=== PATIENT | female | born 1970 | race Caucasian/White ===

== ENCOUNTER → 2019-03-02 | Outpatient (CLI) | payer BC ==
[~2019-03-02] MED LIST: REGADENOSON 0.4 MG/5 ML DISP.SYRIN. IV ONE
--- NOTE | 2019-03-02 14:26 | PCVCIMAG ---
APPROVED REPORT Study performed: 03/02/2019 09:13:42 Indication: Pre-Operative CV evaluation, Chest pain w Nausea Patient Location: Out-Patient Stress Nurse: Yennifer Hudson, RN, Anna Sanchez RN NE Tech:EVAN FoxMT Ht: 5 ft 1 in Wt: 202 lbs BSA: 1.90 m2 HR: 93 bpm BP: 111/59 mmHg BMI: 38.16 Rhythm: Normal Sinus Rhythm Medical History Medical History: HTN, Obesity Medications: No cardiac meds Allergies: No known drug allergies Cardiac Risk Factors: Age, FHX of CAD Pretest Chest Pain Characteristics: No chest pain Exercise History: Physically active Physical Disabilities: Torn meniscus Resting Data Rest SPECT myocardial perfusion imaging was performed in supine position 45 minutes following the intravenous injection of 13.8 mCi of Tc-99m Sestamibi. Time of rest injection: 829 Date: 03/02/2019 Administration Route: IV Administration Site: Left AC Pharmacologic Stress Pharmacologic stress test was performed by injecting Regadenoson 0.4 mg IV push over 10-15 seconds immediately followed by the intravenous injection of 42.1 mCi of Tc-99m Sestamibi. Time of stress injection: 944 Date: 03/02/2019 Administration Route: IV Administration Site: Left AC Gated Stress SPECT was performed 45 minutes after stress injection. The images were gated to evaluate regional wall motion and calculate left ventricular ejection fraction. Stress Test Details Stress Test: Pharmacologic stress was paired with low level exercise. Reason for pharmacologic stress test: physical limitation, torn meniscus. HRMax Heart Rate (APMHR): 174 bpm Resting HR: 93 bpmTarget HR (85% APMHR): 147 bpm Max HR Achieved: 142 bpm % of APMHR: 81 Recovery HR: 112 bpm BP Resting BP: 111/59 mmHg Max BP: 135/63 mmHg Recovery BP: 120/58 mmHg ECG Resting ECG: Normal Sinus Rhythm Stress ECG: Sinus Tachycardia ST Change: Non-ischemic Arrhythmia: None Recovery ECG: Sinus Rhythm Clinical Reason for Termination: Completed protocol Stress Symptoms: Dyspnea, Lightheaded Exercise duration: 4 min 00 sec Symptoms resolved with caffeine. Study Quality Study: Good Artifact: Mild Breast artifact Study Data Post stress, the left ventricular ejection was 74%.. SSS: 1 SRS: 3 SDS: 0 TID = 0.95. Perfusion There is a small area of mildly reduced uptake in the apical segment of the inferior wall which is seen on the stress images as well as the resting images. This area thickens and moves normally and is most consistent with attenuation artifact. Wall Motion Normal left ventricular wall motion. Nuclear Conclusion ECG Findings: negative for ischemia Clinical Findings: non-diagnostic Nuclear Findings: negative for ischemia Exercise Capacity: not assessed Left Ventricular Function: normal Risk Study: low This study is of low probability for inducible ischemia or prior infarct. Normal global and segmental LV systolic function. Artifact: Mild Breast artifact
--- NOTE | 2019-03-04 07:35 | PCVCIMAG ---
APPROVED REPORT Study performed: 03/02/2019 08:02:05 EXAM: Comprehensive 2D, Doppler, and color-flow Echocardiogram Patient Location: Echo lab Room #: 2Status: routine BSA: 1.92 HR: 86 bpmBP: 112/74 mmHg Rhythm: NSR Other Information Study Quality: Adequate Risk Factors: Cardiac Risk Factors: Hyperlipidemia Indications Chest Pressure Pre-Op Fam Hx CAD 2D Dimensions IVSd: 7.06 (7-11mm)LVOT Diam: 20.94 (18-24mm) LVDd: 42.89 mm PWd: 8.77 (7-11mm)Ascending Ao: 30.10 (22-36mm) LVDs: 26.17 (25-40mm) Left Atrium: 34.22 (27-40mm) Aortic Root: 23.94 mm LV Single Plane 4CH: 59.52 % LV Single Plane 2CH: 47.06 % Volumes Left Atrial Volume (Systole) Single Plane 4CH: 51.04 mLSingle Plane 2CH: 38.69 mL Biplane LA Volume: 46.00 mLLA ESV Index: 24.00 mL/m2 Aortic Valve AoV Peak Germán.: 1.15 m/s AO Peak Gr.: 5.25 mmHgLVOT Max P.68 mmHg LVOT Max V: 0.82 m/s EDUARDO Vmax: 2.46 cm2 Mitral Valve E/A Ratio: 1.2 MV Decel. Time: 152.25 ms MV E Max Germán.: 0.86 m/s MV A Germán.: 0.73 m/s Pulmonary Valve PV Peak Germán.: 0.94 m/sPV Peak Gr.: 3.53 mmHg Pulmonary Vein P Vein S: 0.49 m/sP Vein A: 0.31 m/s P Vein D: 0.36 m/sP Vein A Dur.: 117.6 msec P Vein S/D Ratio: 1.36 Tricuspid Valve TR Peak Germán.: 2.38 m/s TR Peak Gr.: 22.74 mmHg TV Vmax: 0.64 m/sPA Pressure: 30.00 mmHg Left Ventricle The left ventricle is normal size. There is normal LV segmental wall motion. There is normal left ventricular wall thickness. Left ventricular systolic function is normal. The left ventricular ejection fraction is within the normal range. LVEF is 55-60%. The left ventricular diastolic function is normal. Right Ventricle The right ventricle is normal size. The right ventricular systolic function is normal. Atria The left atrium size is normal. The right atrium size is normal. Aortic Valve The aortic valve is normal in structure and function. No aortic regurgitation is present. There is no aortic valvular stenosis. Mitral Valve The mitral valve is normal in structure and function. There is no mitral valve regurgitation noted. No evidence of mitral valve stenosis. Tricuspid Valve The tricuspid valve is normal in structure. Trace to mild tricuspid regurgitation with a PA pressure of 25mm Hg Pulmonic Valve The pulmonary valve is normal in structure. There is no pulmonic valvular regurgitation. Great Vessels The aortic root is normal in size. The ascending aorta is normal in size. Aortic arch is normal in caliber. IVC is normal in size and collapses >50% with inspiration. Pericardium There is no pericardial effusion. There is no pleural effusion. <Conclusion> 1. Normal echocardiogram with Doppler. Ejection fraction 60% 2. Pulmonary artery pressure of 25 mmHg 3. No pericardial effusion.
== END | disposition home or self-care (01) ==
LOC: PCVCIMAG 08:00
PROVIDERS: ATTEND Internal Medicine
DX: Z01.810 Encounter for preprocedural cardiovascular examination (principal); R07.89 Other chest pain; E78.5 Hyperlipidemia, unspecified; Z82.49 Family history of ischemic heart disease and other diseases of the circulatory system
CPT/HCPCS: 78452; 93017; 93306; A9500; J2785